=== PATIENT | female | born 1945 | race Caucasian/White ===

== ENCOUNTER 2017-03-24 20:18 | Emergency (ER) | payer OTHER, BC ==
--- NOTE | 2017-03-24 21:52 | CPEKG ---
Heart Rate: 62 RR Interval: 968 P-R Interval: 148 QRSD Interval: 90 QT Interval: 412 QTC Interval: 419 P [place]: 53 QRS [place]: 41 T Wave [place]: 35 EKG Severity - NORMAL ECG - EKG Impression: SINUS RHYTHM Electronically Signed By: Naina Aguillon 25-Mar-2017 06:50:28
[2017-03-24 22:28] LABS: % IMMATURE GRANULYOCYTES 0.1 % (0.0-1.1); ABSOLUTE IMMATURE GRANULOCYTES 0.01 10^3/uL (0.00-0.10); ADD DIFF? NO; ADD MORPH? NO; ADD SCAN? NO; ATYPICAL LYMPHOCYTE FLAG 10 (0-99); FRAGMENT RBC FLAG 0 (0-99); HEMATOCRIT 37.2 % (38.0-47.0); HEMOGLOBIN 12.7 g/dL (12.6-16.3); LEFT SHIFT FLG 0 (0-99); LIPEMIA HEMOLYSIS FLAG 90 (0-99); MEAN CELL HEMOGLOBIN 30.1 pg (27.9-34.1); MEAN CELL HEMOGLOBIN CONCENTR. 34.1 g/dL (32.4-36.7); MEAN CELL VOLUME 88.2 fL (81.5-99.8); MEAN PLATELET VOLUME 9.6 fL (8.7-11.7); PLATELET CLUMPS FLAG 0 (0-99); PLATELET COUNT 303 10^3/uL (150-400); RED BLOOD CELL COUNT 4.22 10^6/uL (4.18-5.33); RED CELL DISTRIBUTION WIDTH 12.9 % (11.5-15.2)
[2017-03-24 22:34] LABS: ALANINE AMINOTRANSFERASE 30 IU/L (9-52); ALKALINE PHOSPHATASE 84 IU/L (38-126); ANION GAP 11 mEq/L (8-16); ASPARTATE AMINOTRANSFERASE 22 IU/L (14-46); BILIRUBIN,TOTAL 0.3 mg/dL (0.1-1.4); CALCIUM 9.6 mg/dL (8.5-10.4); CARBON DIOXIDE 25 mEq/l (22-31); CHLORIDE 102 mEq/L (97-110); CREATININE 0.9 mg/dL (0.6-1.0); GLOMERULAR FILTRATION RATE > 60; GLUCOSE 84 mg/dL (70-100); POTASSIUM 3.6 mEq/L (3.5-5.2); SODIUM 138 mEq/L (134-144); TOTAL PROTEIN 6.6 g/dL (6.3-8.2)
[2017-03-24] MEDS ORDERED: NS 1,000 ML IV ONE (22:40)
--- NOTE | 2017-03-24 22:48 | EDPHY ---
H & P Stated Complaint: sleeplessness x 1 month since arrived from [place] Time Seen by Provider: 03/24/17 22:14 HPI/ROS: HPI The patient presents with fatigue and insomnia which have been present for the last 1 month since she moved from [facility] [place] [facility] to [place]. She is staying with her daughter and grandchildren currently. She normally sleeps 5-6 hours a night, however lately she has been sleeping only about 2 hours a night. She feels more fatigued than usual. She is not able to complete her master's swimming 3 times a week like she did previously. She also cannot play tennis as frequently as she used to. Today, she had a fall down the stairs when she missed a step going down them and she has had other falls as well. She says her legs feel heavy. She also has a new tremor of her left hand REVIEW OF SYSTEMS Constitutional: No fever, no chills. Eyes: No discharge. ENT: No sore throat. Cardiovascular: No chest pain, no palpitations. Respiratory: No cough, no shortness of breath. Gastrointestinal: No abdominal pain, no vomiting. Genitourinary: No hematuria. Musculoskeletal: No back pain. Skin: No rashes. Neurological: No headache. PMHx: Hypertension Soc Hx: Recently relocated from [place] PHYSICAL General Appearance: Alert, no distress Eyes: Pupils equal and round no pallor or injection ENT, Mouth: Mucous membranes moist Respiratory: There are no retractions, lungs are clear to auscultation Cardiovascular: Regular rate and rhythm Gastrointestinal: Abdomen is soft and non-tender, no masses, bowel sounds normal Neurological: Cranial nerves 2-12 intact, no pronator drift, however left hand tremor, normal finger to nose and heel to schaefer testing Skin: Warm and dry, no rashes Musculoskeletal: Neck is supple non tender Extremities: symmetrical, full range of motion Psychiatric: Patient is oriented X 3, there is no agitation Source: Patient Exam Limitations: No limitations - Personal History Current Tetanus/Diphtheria Vaccine: Unsure Current Tetanus Diphtheria and Acellular Pertussis (TDAP): Unsure - Medical/Surgical History Hx Asthma: No Hx Chronic Respiratory Disease: No Hx Diabetes: No Hx Cardiac Disease: No Hx Renal Disease: No Hx Cirrhosis: No Hx Alcoholism: No Hx HIV/AIDS: No Hx Splenectomy or Spleen Trauma: No Other PMH: vertigo, htn - Social History Smoking Status: Never smoked Constitutional: Initial Vital Signs Temperature (C) 37.0 C 03/24/17 20:27 Heart Rate 83 03/24/17 20:27 Respiratory Rate 18 03/24/17 20:27 Blood Pressure 150/103 H 03/24/17 20:27 O2 Sat (%) 96 03/24/17 20:27 O2 Delivery Mode Room Air Allergies/Adverse Reactions: metoprolol Allergy (Verified 03/24/17 20:26) Home Medications: Medication Instructions Recorded Lisinopril 03/24/17 traZODone 03/24/17 LORazepam [Ativan] 1 mg PO HS PRN #6 tablet 03/25/17 Medical Decision Making - Diagnostics EKG Interpretation: EKG: Complete interpretation has been separately recorded in the [email or web address] archive. Summary impression: Normal sinus rhythm Imaging Results: Imaging Impressions Chest X-Ray 03/24/17 22:41 Impression: Chest negative for acute abnormality with probable minimal basilar opacities consistent with atelectasis. Head CT 03/24/17 22:41 Impression: Elderly brain with mild atrophy and probable white matter small vessel disease. Nothing acute is identified. Results called and discussed with Naina Aguillon MD on 03/24/2017 at 23:22 Differential Diagnosis: 71-year-old female who presents after 1 month of increasing fatigue, insomnia, decreased exercise tolerance. She is sleeping only about 2 hours a night. She has tried many medications without relief. Differential diagnosis includes insomnia, anemia, electrolyte disturbance, adjustment altitude, with CVA, brain mass, hypothyroidism, heart failure, acute stress response. In the emergency department, the patient was given 1 L of IV fluid for presumed volume depletion. Labs were checked and did reveal elevated BUN which could be suggestive of this. CT scan of head did reveal atrophy and mild white matter disease. Chest x-ray was normal. The cause of her insomnia and other symptoms is not exactly clear. It could be related to altitude, however after 1 month I would hope her symptoms would be improving. She has tried medications for sleep over the counter without much improvement. We had a long discussion about different options for sleep medication. I recommended that she take melatonin 0.5-1 mg 4 hours before bed to see if this helps. I have also given her a short course of Ativan to use only as needed, though I have explained that this is not a medication should be on long-term. I have referred her to the primary care doctor air pollution analyst as I feel she would benefit for further outpatient evaluation of her fatigue, though we have not identified any urgent or emergent cause that requires immediate treatment. She is in agreement with this plan. - Data Points Laboratory Results: Laboratory Results 03/24/17 22:03 03/24/17 22:03 03/24/17 03/24/17 03/24/17 23:59 22:03 22:03 WBC 6.97 10^3/uL 10^3/uL (3.80-9.50) RBC 4.22 10^6/uL 10^6/uL (4.18-5.33) Hgb 12.7 g/dL g/dL (12.6-16.3) Hct 37.2 % L % (38.0-47.0) MCV 88.2 fL fL (81.5-99.8) MCH 30.1 pg pg (27.9-34.1) MCHC 34.1 g/dL g/dL (32.4-36.7) RDW 12.9 % % (11.5-15.2) Plt Count 303 10^3/uL 10^3/uL (150-400) MPV 9.6 fL fL (8.7-11.7) Neut % (Auto) 36.2 % L % (39.3-74.2) Lymph % (Auto) 52.9 % H % (15.0-45.0) [place] % (Auto) 7.0 % % (4.5-13.0) Eos % (Auto) 2.9 % % (0.6-7.6) Baso % (Auto) 0.9 % % (0.3-1.7) Nucleat RBC Rel Count 0.0 % % (0.0-0.2) Absolute Neuts (auto) 2.52 10^3/uL 10^3/uL (1.70-6.50) Absolute Lymphs (auto) 3.69 10^3/uL H 10^3/uL (1.00-3.00) Absolute Monos (auto) 0.49 10^3/uL 10^3/uL (0.30-0.80) Absolute Eos (auto) 0.20 10^3/uL 10^3/uL (0.03-0.40) Absolute Basos (auto) 0.06 10^3/uL 10^3/uL (0.02-0.10) Absolute Nucleated RBC 0.00 10^3/uL 10^3/uL (0-0.01) Immature Gran % 0.1 % % (0.0-1.1) Immature Gran # 0.01 10^3/uL 10^3/uL (0.00-0.10) Sodium 138 mEq/L mEq/L (134-144) Potassium 3.6 mEq/L mEq/L (3.5-5.2) Chloride 102 mEq/L mEq/L (97-110) Carbon Dioxide 25 mEq/l mEq/l (22-31) Anion Gap 11 mEq/L mEq/L (8-16) BUN 25 mg/dL H mg/dL (7-23) Creatinine 0.9 mg/dL mg/dL (0.6-1.0) Estimated GFR > 60 Glucose 84 mg/dL mg/dL (70-100) Calcium 9.6 mg/dL mg/dL (8.5-10.4) Total Bilirubin 0.3 mg/dL mg/dL (0.1-1.4) AST 22 IU/L IU/L (14-46) ALT 30 IU/L IU/L (9-52) Alkaline Phosphatase 84 IU/L IU/L (38-126) Total Protein 6.6 g/dL g/dL (6.3-8.2) Albumin 4.0 g/dL g/dL (3.5-5.0) TSH 4.390 uIU/mL uIU/mL (0.465-4.680) Urine Color PALE YELLOW Urine Appearance CLEAR Urine pH 6.0 (5.0-7.5) Ur Specific [place] 1.012 (1.002-1.030) Urine Protein NEGATIVE (NEGATIVE) Urine Ketones NEGATIVE (NEGATIVE) Urine Blood NEGATIVE (NEGATIVE) Urine Nitrate NEGATIVE (NEGATIVE) Urine Bilirubin NEGATIVE (NEGATIVE) Urine Urobilinogen NEGATIVE EU EU (0.2-1.0) Ur Leukocyte Esterase 1+ H (NEGATIVE) Urine RBC 10-15 /hpf H /hpf (0-3) Urine WBC 3-5 /hpf H /hpf (0-3) Ur Epithelial Cells TRACE /lpf /lpf (NONE-1+) Urine Glucose NEGATIVE (NEGATIVE) Medications Given: Discontinued Medications Sodium Chloride (Ns) 1,000 mls @ 0 mls/hr IV ONCE ONE PRN Reason: Wide Open Stop: 03/24/17 22:41 Last Admin: 03/24/17 22:00 Dose: 1,000 mls Lorazepam (Ativan 1 Mg Prepack#4) 1 btl TAKEHOME EDNOW ONE Stop: 03/25/17 01:04 Last Admin: 03/25/17 01:14 Dose: 1 btl Departure - Departure Disposition: Home, Routine, Self-Care Clinical Impression: Fatigue, Insomnia Condition: Good Instructions: Lorazepam (By mouth), Insomnia (ED) Additional Instructions: Please return to the emergency department if your worse in any way. I recommend that you take melatonin 1 mg about 4 hours before bed to see if this improves your insomnia. You can also try Unisom in addition to this. I would like you to follow up with a primary care doctor to follow up on the symptoms that you are having. I have referred you to Dr. Dejesus. Here, we have evaluated you for any potential emergencies or dangerous conditions, however I think that further testing may be needed. Referrals: Sindi Dejesus MD [place] [place] - As per Instructions Prescriptions: LORazepam [Ativan] 1 mg PO HS PRN #6 tablet PRN Reason: insomnia
[2017-03-25 00:13] LABS: COLOR PALE YELLOW; LEUKOCYTE ESTERASE,URINE 1+ (NEGATIVE); NITRITE,URINE NEGATIVE (NEGATIVE)
[2017-03-25 00:23] VITALS: O2SAT 94
[2017-03-25] MEDS ORDERED: LORAZEPAM 1 MG PREPACK#4 BTL TAKEHOME ONE (01:03)
[2017-03-25 01:27] VITALS: BP 126/80; PULSE 64; RESP 16; TEMP 98.2
== END 2017-03-25 01:26 | disposition home or self-care (01) ==
DX: R53.83 Other fatigue (principal); G47.00 Insomnia, unspecified; I10 Essential (primary) hypertension

== ENCOUNTER 2017-08-28 13:09 | Emergency (ER) | payer OTHER, BC ==
[2017-08-28 13:28] VITALS: TEMP 98.2
--- NOTE | 2017-08-28 14:17 | EDPHY ---
H & P Time Seen by Provider: 08/28/17 13:47 HPI/ROS: Chief complaint. Cough, fever, chest pain HPI. 72-year-old female presents emergency department with 6 day history runny nose, chills, achiness, fever, cough. Cough is nonproductive. She is not short of breath. She has which she describes as bilateral rib pain that is only present when she is coughing. She feels that these are sore muscles. Not worse with deep breathing or exertion. She is exposed to Infectious Disease from her sick grandchildren. ROS Constitutional. Fever and chills Eyes. no problems with vision ENT. no sore throat, no nasal drainage Cardiovascular. no chest pain Respiratory. Cough without shortness of breath Abdominal. no abdominal pain, no nausea/vomiting, no diarrhea . no problems urinating MS. Myalgias Skin. no rash Lymph. no swollen glands Neuro. no headache, no dizziness, no difficulty walking or with speech Past Medical/Surgical History: Vertigo, hypertension, dyslipidemia Social History: Single, nonsmoker, no alcohol Smoking Status: Never smoked Physical Exam: General Appearance: Alert well-developed female mild distress vital signs are stable Eyes: Pupils equal and round no pallor or injection. ENT, pharynx mildly injected without exudate. Mucous membranes are moist. Respiratory: No retractions but inspiratory expiratory rhonchi. Cardiovascular: Regular rate and rhythm. Gastrointestinal: Abdomen is soft and nontender, no masses, bowel sounds normal. Neurological: Awake and alert, sensory and motor exams grossly normal. Skin: Warm and dry, no rashes. Musculoskeletal: Neck is supple nontender. Extremities symmetrical, full range of motion. Psychiatric: Patient is oriented X 3, there is no agitation. Constitutional: Initial Vital Signs Temperature (C) 36.8 C 08/28/17 13:25 Heart Rate 89 08/28/17 13:25 Respiratory Rate 16 08/28/17 13:25 Blood Pressure 146/119 H 08/28/17 13:25 O2 Sat (%) 99 08/28/17 13:25 O2 Delivery Mode Room Air Allergies/Adverse Reactions: metoprolol Allergy (Verified 08/28/17 13:24) Home Medications: Medication Instructions Recorded Lisinopril 03/24/17 traZODone 03/24/17 Albuterol Hfa Anes Only [Proair 2 puffs IH QID PRN #1 mdi 08/28/17 Hfa Icu (*)] Benzonatate [Tessalon Pearles (RX)] 100 mg PO Q4-6PRN PRN #14 cap 08/28/17 Simvastatin 08/28/17 Medical Decision Making - Diagnostics Imaging Results: Chest x-ray interpreted by me as negative for pneumonia or pneumothorax Procedures: Influenza and RSV swab ED Course/Re-evaluation: Re-evaluation 2:35 p.m.. Patient is stable. She and I discussed imaging study results. We discussed treatment plan including encourage in-patient call back for her influenza results. She and I discussed that she is out of window for treatment specifically with Tamiflu. She expresses understanding and agreement We did talk about cough control and inhaler to help with cough Differential Diagnosis: I believe this is influenza. I also considered pneumonia, pneumothorax. While the patient does have chest discomfort with cough I do not think that this is a pulmonary embolus or acute coronary syndrome Departure - Departure Disposition: Home, Routine, Self-Care Clinical Impression: Acute bronchitis Qualifiers: Bronchitis organism: unspecified organism Qualified Code(s): J20.9 - Acute bronchitis, unspecified Condition: Good Instructions: Acute Bronchitis (ED), Influenza (ED) Additional Instructions: Drink plenty of fluids and stay hydrated. Ibuprofen 4-600 mg every 6 hr as needed for achiness and fever. Albuterol inhaler using 2 puffs every 4-6 hours to help with cough. Tessalon Perles also to help with cough. Return for worsening symptoms. Recheck in 2-3 days if not improving Call back for influenza test results. [phone] Referrals: NONE *PRIMARY CARE P,. [Primary Care Provider] - As per Instructions Salty Austin MD [Medical Doctor] - As per Instructions Neo Austin MD [Medical Doctor] - 2-3 days, if not improved Prescriptions: Albuterol Hfa Anes Only [Proair Hfa Icu (*)] 2 puffs IH QID PRN #1 mdi PRN Reason: Short Of Breath/Dyspnea Benzonatate [Tessalon Pearles (RX)] 100 mg PO Q4-6PRN PRN #14 cap PRN Reason: Cough, Moderate
[2017-08-28 15:15] VITALS: BP 134/100; PULSE 81; RESP 18; O2SAT 95
== END 2017-08-28 15:11 | disposition home or self-care (01) ==
DX: J20.9 Acute bronchitis, unspecified (principal); I10 Essential (primary) hypertension

== ENCOUNTER 2018-08-04 20:11 | Emergency (ER) | payer OTHER ==
[2018-08-04 20:28] VITALS: BP 163/94
--- NOTE | 2018-08-04 20:39 | EDPHY ---
H & P Time Seen by Provider: 08/04/18 20:20 HPI/ROS: HPI Finger laceration. 73-year-old female. Right-hand dominant. Was using a sharp knife in the kitchen when she accidentally cut the proximal dorsal aspect of her right index finger. She does not remember the last time she had a tetanus shot. She denies any loss of sensation or weakness distally to this wound. No other injury or complaint. ROS: Constitutional: No fever, no chills. No weakness. Musculoskeletal: As above. Skin: As above. Neurological: No focal weakness or altered sensation. Past medical history: Vertigo, hypertension, right arm fracture. Social history: Here by herself. Nonsmoker. Physical Exam: General Appearance: Alert, no distress. This patient is responding to questions appropriately and in full sentences. This patient appears well- hydrated and well-nourished. Eyes: Pupils equal and round no pallor or injection. No lid edema, erythema or injection. Right index finger exam: Is significant for a v-shaped 3.5 cm flap type laceration dorsal aspect with more radial involvement proximal index finger, just distal to the metatarsal phalangeal joint. The extensor tendon function is intact in the digit. The flexor digitorum superficialis and flexor digitorum profundus tendon function is intact. The right index finger is neurovascularly intact. Neurological: Motor sensory function is grossly intact. Cranial nerves are normal. Gait is normal. Skin: Warm and dry, no rashes. As above. Extremities are symmetrical. All joints range without pain or impingement. Psychiatric: No agitation. No depression. Database: EKG: Imaging: Procedures: Procedure: Laceration repair. Verbal consent was obtained from the patient. The 3.5 cm laceration on the dorsal proximal right index finger was anesthetized in the usual fashion. The wound was irrigated, draped and explored to its base with a gloved finger. There were no deep structures involved. No tendon injury was identified. No foreign body was identified on gross exploration. The wound was repaired with 11, 5.0 Ethilon sutures placed in interrupted fashion. The wound repair was tolerated well and there were no complications. The procedure was performed by myself. Emergency department course: After suture repairs above, wound care was discussed with the patient. Follow- up and return to emergency department precautions reviewed. She feels comfortable going home. The wound was appropriately dressed. Infection precautions reviewed as well. All of the patient's questions were answered. She was discharged from the emergency department in good condition. Differential Diagnosis: The differential diagnosis on this patient includes but is not limited to laceration to dorsal right index finger. Retained foreign body, tendon injury, significant neurovascular injury unlikely. This represents a partial list of diagnoses considered. These considerations are based on history, physical exam , past history, reassessment and diagnostic testing. Smoking Status: Never smoked Constitutional: Initial Vital Signs Temperature (C) 36.4 C 08/04/18 20:25 Heart Rate 118 H 08/04/18 20:25 Respiratory Rate 16 08/04/18 20:25 Blood Pressure 163/94 H 08/04/18 20:25 O2 Sat (%) 94 08/04/18 20:25 O2 Delivery Mode Room Air Allergies/Adverse Reactions: No Known Allergies Allergy (Unverified 08/04/18 20:24) Home Medications: Medication Instructions Recorded Lisinopril 03/24/17 Simvastatin 08/28/17 Departure - Departure Disposition: Home, Routine, Self-Care Clinical Impression: Laceration of right index finger Condition: Good Instructions: Care For Your Stitches (ED), Laceration (ED) Additional Instructions: Read and follow provided instructions. Sutures are to be removed in 10-12 days. The this can be done here by our nursing staff or by your primary care physician. Follow-up with your primary care physician in 2-3 days as needed for wound check. Ibuprofen dosin mg every 6 hours with meals for the next 3 days only. Take only as needed for pain. Return to the emergency department for bleeding, redness involving the wound, swelling, drainage of pus or other serious concerns. Referrals: NONE *PRIMARY CARE P,. [Primary Care Provider] - As per Instructions
== END 2018-08-04 21:29 | disposition home or self-care (01) ==
LOC: CED 20:11
PROC: 0HQFXZZ Repair Right Hand Skin, External Approach (ICD-10-PCS; principal; 2018-08-04)
DX: S61.210A Laceration without foreign body of right index finger without damage to nail, initial encounter (principal); I10 Essential (primary) hypertension; W26.0XXA Contact with knife, initial encounter; Y92.000 Kitchen of unspecified non-institutional (private) residence as the place of occurrence of the external cause; Y99.9 Unspecified external cause status; Y93.9 Activity, unspecified
CPT/HCPCS: 99282-ER